=== PATIENT | female | born 1975 | race Caucasian/White ===

== ENCOUNTER 2017-07-27 16:49 | Emergency (ER) | payer MEDICAID ==
[~2017-07-27] VITALS: Ht 157.5 cm; Wt 87.5 kg
[2017-07-27 16:54] VITALS: Ht 157.5 cm; Wt 87.5 kg
[2017-07-27 19:05] VITALS: BP 120/72
== END 2017-07-27 19:05 | disposition home or self-care (01) ==
LOC: ED 16:49
DX: R51 Headache (principal)
CPT/HCPCS: J0780; J1200; J7030